=== PATIENT | male | born 2000 | race Caucasian/White ===

== ENCOUNTER 2020-01-28 13:38 | Observation (INO) ==
[2020-01-28] MEDS ORDERED: Famotidine IV 10 MG/ML 2 ml VIAL (20 mg) IV SLOW PU ONE (13:46)
[2020-01-28] MEDS ORDERED: NS 0.9% 1000 ml BAG 1,000 ML IV ONE (13:46)
[2020-01-28 14:28] LABS: ABS Eosinophils 0.1 10^3/ul (0-0.6); ABS Lymphocytes 1.3 10^3/ul (1.0-4.8); ABS Monocytes 1.2 10^3/ul (0-0.8); ABS Neutrophils 11.1 10^3/ul (1.5-7.7); Eosinophil % 0.5 %; Hematocrit 44 % (42-52); Hemoglobin 15.3 g/dL (14.0-18.0); Lymphocyte % 9.6 %; Mean Corpuscular HGB Conc 35 g/dL (31-36); Mean Corpuscular Hemoglobin 30 pg (27-31); Mean Corpuscular Volume 85 fL (80-94); Mean Platelet Volume 7.6 fL (7.4-10.4); Nucleated Red Blood Cells % 0.1; Platelet Count 206 10^3/uL (150-450); Red Blood Count 5.12 10^6 /uL (4.18-5.48); Red Cell Distribution Width 12 % (10-15); White Blood Count 13.7 10^3/uL (3.5-10.8)
[2020-01-28 14:56] LABS: Albumin 4.8 g/dL (3.2-5.2); Albumin/Globulin Ratio 1.8 (1-3); EGFR African American 131.9 (>60); Globulin 2.6 g/dL (2-4); Potassium 4.3 mmol/L (3.5-5.0); Total Bilirubin 0.9 mg/dL (0.2-1.0); Total Protein 7.4 g/dL (6.4-8.9)
[2020-01-28] MEDS ORDERED: Ondansetron 4 mg VIAL 2 MG/ML 2 ml VIAL IV ONE (14:58)
[2020-01-28] MEDS ORDERED: Morphine 4 MG/ML VIAL (1 ml) IV ONE ×2 (14:58→16:23)
[2020-01-28] MEDS ORDERED: Iohexol 300 (CONTRAST) 10 ML SDV IV ONE (15:54)
[2020-01-28] MEDS ORDERED: Piperacillin/Tazobac ADVAN 3.375 GM in NS 0.9% 100 ml BAG 100 ML IVPB ONE (17:53)
[2020-01-28] MEDS ORDERED: Bupivacaine 0.25% EPI 200,000 30 ML SDV ONE (18:33)
[2020-01-28] MEDS ORDERED: Midazolam 2 mg/2 ml VIAL 1 mg/ml 2 ml VIAL (2 mg) ONE (19:07)
[2020-01-28] MEDS ORDERED: fentaNYL 100 mcg/2 ml 50 MCG/ML VIAL ONE (19:09)
[2020-01-28] MEDS ORDERED: Rocuronium 50 mg VIAL 10 mg/ml 5 ml VIAL (50 mg) ONE (19:23)
[2020-01-28] MEDS ORDERED: Ondansetron 4 mg VIAL 2 MG/ML 2 ml VIAL ONE (20:13)
[2020-01-28] MEDS ORDERED: Propofol 10 MG/ML 20 ML BTL ONE (20:13)
[2020-01-28] MEDS ORDERED: Lidocaine 2% PF 5 ML VIAL ONE (20:13)
[2020-01-28] MEDS ORDERED: Succinylcholine 200 mg VIAL 20 mg/ml 10 ml VIAL (200 mg) ONE (20:17)
[2020-01-28] MEDS ORDERED: Dexamethasone IV 4 MG/ML VIAL 1 ml VIAL ONE ×2 (20:17)
[2020-01-28] MEDS ORDERED: oxyCODONE/Acetamin 5/325 mg TAB PO PRN ×2 (20:46→20:54)
[2020-01-28] MEDS ORDERED: Morphine 4 MG/ML VIAL (1 ml) IV PRN (20:46)
[2020-01-28] MEDS ORDERED: Naloxone 0.4 mg VIAL 0.4 mg/ml 1 ml VIAL IV PRN (20:46)
[2020-01-28] MEDS ORDERED: Ondansetron 4 mg VIAL 2 MG/ML 2 ml VIAL IV PRN (20:54)
[2020-01-28] MEDS ORDERED: HYDROmorphone 1 MG/1 ML SYRINGE IV SLOW PU PRN (20:54)
[2020-01-28] MEDS: Lactated Ringers 1000 ml BAG 1,000 ML IV SCH (22:15)
[2020-01-29] MEDS: Lactated Ringers 1000 ml BAG 1,000 ML IV SCH (06:15)
[2020-01-29 07:29] VITALS: BP 114/66
== END 2020-01-29 10:30 | disposition home or self-care (01) ==
LOC: ED 13:38 → SSU 13:38
PROVIDERS: ADMIT Surgery; ATTEND Surgery